=== PATIENT | female | born 1955 | race Caucasian/White ===

== ENCOUNTER 2017-03-11 06:39 | Emergency (ER) | payer BC ==
[2017-03-11] MEDS ORDERED: Oxycodone/Acetaminophen 5/325 mg Tab PO STA (08:26)
[2017-03-11] MEDS ORDERED: Oxycodone/Acetaminophen 5/325 mg Tab ONE (08:31)
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
--- NOTE | 2017-03-11 10:11 | RAD ---
PROCEDURE: Radiographs of the Lumbar Spine. HISTORY: back pain COMPARISON: No prior. FINDINGS: BONES: Lumbar spine straightening present. No listhesis. No fracture. Diffuse lumbar spondylosis marginal osteophytes most pronounced right T12-L1 and L1-2 and right L4-5. Diffuse lumbar Schmorl's node indentations. DISC SPACES: L1-2 and L2-3 disc space narrowing OTHER FINDINGS: Bilateral facet arthrosis L5-S1. Stool retention. Pelvic calcifications IMPRESSION: Lumbar spondylosis. Other findings as above
--- NOTE | 2017-03-11 10:17 | C.PDOC ---
History Of Present Illness 61 year old female presents to the ED with complaints of lower back pain radiating down her left leg for several days. Patient states she was seen by her PMD 6 days ago for the same complaints and was given Flexeril and Decadron with slight relief, however she is concerned because she still has pain. Denies injury, fall, fever, urinary symptoms, abdominal pain, or any other complaints at this time. Time Seen by Provider: 03/11/17 08:02 Chief Complaint (Nursing): Back Pain History Per: Patient History/Exam Limitations: no limitations Onset/Duration Of Symptoms: Days Current Symptoms Are (Timing): Still Present Quality Of Discomfort: "Pain" Severity: Mild Pain Scale Rating Of: 4 Associated Symptoms: None Past Medical History Reviewed: Historical Data, Nursing Documentation, Vital Signs Vital Signs: Last Vital Signs Temp 98 F 03/11/17 10:35 Pulse 96 H 03/11/17 10:35 Resp 20 03/11/17 10:35 BP 111/74 03/11/17 10:35 Pulse Ox 97 03/11/17 10:56 - Medical History PMH: HTN - [facility] Procedures CORONAR ARTERIOGR-2 CATH (03/02/15) LEFT HEART CARDIAC CATH (03/02/15) LT HEART ANGIOCARDIOGRAM (03/02/15) PERCUTAN NEEDLE BIOPSY OF BREAST (01/09/14) Family History: States: Unknown Family Hx - Social History Hx Tobacco Use: No Hx Alcohol Use: No Hx Substance Use: No - Immunization History Hx Tetanus Toxoid Vaccination: No Hx Influenza Vaccination: No Hx Pneumococcal Vaccination: No Review Of Systems Except As Marked, All Systems Reviewed And Found Negative. Constitutional: Negative for: Fever, Chills Cardiovascular: Negative for: Chest Pain, Palpitations Respiratory: Negative for: Shortness of Breath Gastrointestinal: Negative for: Vomiting, Abdominal Pain Genitourinary: Negative for: Dysuria, Frequency, Incontinence Musculoskeletal: Positive for: Back Pain Neurological: Negative for: Weakness, Numbness Physical Exam - Physical Exam Appears: Non-toxic, No Acute Distress Skin: Normal Color, Warm, Dry Head: Atraumatic, Normacephalic Eye(s): bilateral: Normal Inspection Oral Mucosa: Moist Neck: Supple Chest: Symmetrical, No Deformity Cardiovascular: Rhythm Regular, No Murmur Respiratory: Normal Breath Sounds, No Accessory Muscle Use, No Rales, No Rhonchi , No Wheezing Gastrointestinal/Abdominal: Soft, No Tenderness Back: No Vertebral Tenderness, Paraspinal Tenderness (+Left paraspinal tenderness), Straight Leg Raising (+Left SLR at 60 degrees), Other (+Left buttock tenderness ) Extremity: Normal ROM, Tenderness (+Tenderness to the left posterior thigh), No Calf Tenderness, No Deformity Neurological/Psych: Oriented x3, Normal Speech, Normal Cognition ED Course And Treatment O2 Sat by Pulse Oximetry: 97 (Room air) Pulse Ox Interpretation: Normal - Other Rad LS Spine AP/LAT X-Ray: Viewed By Me, Read By Radiologist Interpretation: Accession No. : [id number]. Patient Name / ID : BITA LAROSE / [id number]. Exam Date : 03/11/2017 08:39:48 ( Approved ). Study Comment : Sex / Age : F / [id number]. Creator : ALEX KATHLEEN. Dictator : Janette Daley V. Retail Banking Manager : Block Greaser : Janette Daley V. Approver2 : Report Date : 03/11/2017 09:18:50. My Comment : *. PROCEDURE: Radiographs of the Lumbar Spine. HISTORY: back pain. COMPARISON: No prior. FINDINGS: BONES: Lumbar spine straightening present. No listhesis. No fracture. Diffuse lumbar spondylosis marginal osteophytes most pronounced right T12-L1 and L1-2 and right L4-5. Diffuse lumbar Schmorl's node indentations. DISC SPACES: L1-2 and L2-3 disc space narrowing. OTHER FINDINGS : Bilateral facet arthrosis L5-S1. Stool retention. Pelvic calcifications. IMPRESSION: Lumbar spondylosis. Other findings as above Progress Note: LS Spine AP/ALT ordered and reviewed. Patient treated with Percocet and Toradol. On reassessment, patient is resting comfortably, with improvement of back pain. Patient remains afebrile, with no bony tenderness, extremity numbness or weakness, or abdominal pain. Patient is ambulatory in the emergency department with no signs of discomfort. Rx given and patient was advised to follow up with her PMD in 1-2 days. Disposition - Disposition Referrals: Christofer trevino [Other] Disposition: HOME/ ROUTINE Disposition Time: 10:52 Condition: STABLE Additional Instructions: Folow up with PMD within 1-2 days. Return to ED if feel worse. Prescriptions: Docusate [Colace] 100 mg PO TID #30 cap Ibuprofen [Motrin Tab] 600 mg PO Q8 #30 tab oxyCODONE/Acetaminophen [Percocet 5/325 mg Tab] 1 tab PO QID PRN #20 tab PRN Reason: Pain Instructions: Acute Low Back Pain (ED) - Clinical Impression Clinical Impression: Low back pain - PA / OIL RECOVERY OPERATOR / Resident Statement MD/DO has reviewed & agrees with the documentation as recorded. - Scribe Statement The provider has reviewed the documentation as recorded by the Scribe Isabel Barber. All medical record entries made by the Scribe were at my direction and personally dictated by me. I have reviewed the chart and agree that the record accurately reflects my personal performance of the history, physical exam, medical decision making, and the department course for this patient. I have also personally directed, reviewed, and agree with the discharge instructions and disposition.
[2017-03-11 10:36] VITALS: BP 111/74; PULSE 96; RESP 20; TEMP 98; O2SAT 97
== END 2017-03-11 11:06 | disposition home or self-care (01) ==
LOC: C.ER 06:39
DX: M54.5 Low back pain (principal)
CPT/HCPCS: 72100; 82948; 96372; 99285; J1885